=== PATIENT | male | born 1980 | race Caucasian/White ===

== ENCOUNTER 2020-04-25 20:04 | Emergency (ER) | payer BC ==
[2020-04-25 20:33] LABS: HEMOGLOBIN 16.5 gm/dl (14.0-17.5); RED BLOOD COUNT 5.14 M/UL (4.20-5.50); WHITE BLOOD COUNT 14.7 K/UL (4.5-11.0)
[2020-04-25 20:59] LABS: BUN/CREATININE RATIO 12 (0-10)
== END 2020-04-25 21:24 | disposition short-term general hospital (02) ==
LOC: ER1 20:04
PROVIDERS: Emergency Medicine
DX: S68.621A Partial traumatic transphalangeal amputation of left index finger, initial encounter (principal); Z23 Encounter for immunization; W31.9XXA Contact with unspecified machinery, initial encounter; Y92.89 Other specified places as the place of occurrence of the external cause; Y99.0 Civilian activity done for income or pay
CPT/HCPCS: 36415; 73130; 80048; 85025; 90471; 90714; 96374; 96375; 99284; J0690; J2270; J2405